=== PATIENT | female | born 1975 | race Caucasian/White ===

== ENCOUNTER 2017-08-15 10:38 | Emergency (ER) | END 2017-08-15 13:04 | disposition home or self-care (01) ==

== ENCOUNTER 2017-12-26 11:28 | Emergency (ER) | END 2017-12-26 12:54 | disposition home or self-care (01) ==

== ENCOUNTER 2018-04-10 23:34 | Emergency (ER) | END 2018-04-11 03:00 | disposition home or self-care (01) ==

== ENCOUNTER 2018-05-05 04:04 | Emergency (ER) | END 2018-05-05 07:02 | disposition home or self-care (01) ==

== ENCOUNTER 2018-09-26 04:03 | Emergency (ER) | payer OTHER ==
[~2018-09-26] VITALS: Ht 165.1 cm; Wt 67.0 kg
[~2018-09-26 04:03] MED LIST: AMOX1TAB10 PO; CYCL10TA7 PO; FERR27TA PO; HYDR-3980 PO; HYDR-4011 PO; IBUP-1542 PO; NAPR-985 PO; ONDA4TAB14 PO; ONDA4TAB8 PO; PREN1TAB49 PO
[2018-09-26 04:08] VITALS: Ht 165.1 cm; Wt 67.0 kg
[2018-09-26] MEDS ORDERED: ONDANSETRON 4 MG INJ IV STA (04:42)
[2018-09-26] MEDS ORDERED: morphine 4 MG/ML VIAL IV STA (04:42)
[2018-09-26] MEDS ORDERED: SOD CHLORIDE 0.9% 500 ML IV STA (04:42)
--- NOTE | 2018-09-26 06:22 | ERD ---
ER Documentation Chief Complaint Chief Complaint C/O WORSENING RT SIDED FLANK PAIN SINCE YESTERDAY HPI This is a 42-year-old woman complaining of right flank pain beginning last night, colicky, nonradiating and nonexertional. Patient states she has had multiple similar episodes in the past and her last ultrasound revealed gallston es and she states a CAT scan performed about a year ago was unrevealing. Patient denies fevers or chills, no weight loss, no hematuria, no complaints of chest pain or shortness of breath. ROS All systems reviewed and are negative except as per history of present illness. Medications Home Meds Active Scripts Oxycodone HCl/Acetaminophen (Percocet 5-325 mg Tablet) 1 Each Tablet, 1 EACH PO TID PRN for PAIN, #12 TAB Prov:KYLEE FRANCO MD 09/26/18 Ondansetron Hcl* (Zofran*) 4 Mg Tablet, 4 MG PO Q8H PRN for NAUSEA AND/OR VOMITING, #30 TAB Prov:KYLEE FRANCO MD 09/26/18 Ibuprofen* (Motrin*) 600 Mg Tab, 600 MG PO Q8 PRN for PAIN AND/OR INFLAMMATION, #30 TAB Prov:KYLEE FRANCO MD 09/26/18 Ondansetron Hcl* (Zofran*) 4 Mg Tablet, 4 MG PO Q8H PRN for NAUSEA AND/OR VOMITING, #30 TAB Prov:CHUYITA DEVI 05/05/18 Hydrocodone/Acetaminophen ([place] 10-325 Tablet) 1 Each Tablet, 1 TAB PO Q6H PRN for SEVERE PAIN LEVEL 7-10, #20 TAB Prov:CHUYITA DEVI 05/05/18 Naproxen* (Naprosyn*) 500 Mg Tablet, 500 MG PO BID PRN for PAIN AND/OR INFLAMMATION, #30 TAB Prov:CHUYITA DEVI 05/05/18 Hydrocodone/Acetaminophen ([place] 5-325 Tablet) 1 Each Tablet, 1 TAB PO Q6H PRN for PAIN, #7 TAB Prov:JEAN MARIE GILLIAM PA-C 04/11/18 Ondansetron (Ondansetron Odt) 4 Mg Tab.rapdis, 4 MG PO Q6H PRN for NAUSEA AND/OR VOMITING, #10 TAB Prov:JEAN MARIE GILLIAM PA-C 04/11/18 Ibuprofen* (Motrin*) 600 Mg Tab, 600 MG PO Q6, #30 TAB Prov:JEAN MARIE GILLIAM PA-C 04/11/18 Naproxen* (Naprosyn*) 500 Mg Tablet, 500 MG PO BID PRN for PAIN AND/OR INFLAMMATION, #30 TAB Prov:TUSHAR COLON PA-C 12/26/17 Amoxicillin/Potassium Clav (Amox-Clav 875-125 mg Tablet) 875-125 mg Tab, 1 TAB PO BID for 7 Days, #14 TAB Prov:TUSHAR COLON PA-C 12/26/17 Ibuprofen* (Motrin*) 600 Mg Tab, 600 MG PO Q6H PRN for PAIN AND OR ELEVATED TEMP, #30 TAB Prov:ANGELICA GONZALEZ PA-C 08/15/17 Cyclobenzaprine Hcl* (Cyclobenzaprine Hcl*) 10 Mg Tablet, 10 MG PO TID, #30 TAB Prov:ANGELICA GONZALEZ PA-C 08/15/17 Reported Medications Ferrous Sulfate (Iron) 1 Tab Tablet, 1 TAB PO BID for 1 Day 12/06/10 Vits W-Ca,Fe,Fa(<1MG) () 1 Tab Tablet, 1 TAB PO DAILY for 1 Day 12/06/10 Allergies Allergies: Coded Allergies: No Known Allergy (Verified Allergy, 12/06/10) PMhx/Soc History of cholelithiasis, anemia History of Surgery: No Anesthesia Reaction: No Hx Neurological Disorder: No Hx Respiratory Disorders: No Hx Cardiac Disorders: No Hx Psychiatric Problems: No Hx Miscellaneous Medical Probl: No Hx Alcohol Use: No Hx Substance Use: No Hx Tobacco Use: No FmHx Family History: No diabetes Physical Exam Vitals Vital Signs Date Temp Pulse Resp B/P (MAP) Pulse Ox O2 O2 Flow FiO2 Time Delivery Rate 09/26/18 96.7 62 17 113/65 100 Room Air 08:07 (81) 09/26/18 98.2 67 16 118/73 100 Room Air 07:05 (88) 09/26/18 73 16 123/80 100 Room Air 06:17 (94) 09/26/18 97.9 75 18 136/65 100 04:08 (88) Physical Exam GENERAL: Well-developed, well-nourished, well-hydrated, in no apparent distress, looks nontoxic in appearance HEENT: Moist mucous membranes, pink conjunctiva, no cervical spine tenderness or step-off deformities, no goiter, no jaundice or icterus, extraocular movements intact without pain. No submandibular induration, and no pharyngeal erythema NEURO: Alert and oriented 3, cranial nerves II through XII intact bilaterally, pupils equal round reactive to light, no focal deficits or facial asymmetry, sensation intact distally Strength 5/5 in upper and lower extremities bilaterally CARDIAC: Regular rate and rhythm, no murmurs rubs or gallops LUNGS: Clear bilaterally no wheezing crackles or stridor ABDOMEN: Soft nontender, no guarding, no rigidity, no rebound, no psoas sign no obturator sign. Normoactive bowel sounds SKIN: Warm and dry to touch, no abrasions, contusions, or hematomas, no lacerations, no ecchymosis, no target lesions, and without ulcers EXTREMITIES: No clubbing cyanosis or edema, calves are bilaterally symmetrical, no Homans sign, no popliteal cord sign. Distal pulses equal and bilateral PSYCH: Normal affect without agitation or irritability Result Diagram: 09/26/18 0500 09/26/18 0500 Results 24 hrs Laboratory Tests Test 09/26/18 05:00 White Blood Count 5.9 10^3/ul Red Blood Count 4.12 10^6/ul Hemoglobin 9.8 g/dl Hematocrit 32.0 % Mean Corpuscular Volume 77.7 fl Mean Corpuscular Hemoglobin 23.8 pg Mean Corpuscular Hemoglobin Concent 30.6 g/dl Red Cell Distribution Width 16.3 % Platelet Count 377 10^3/UL Mean Platelet Volume 9.5 fl Immature Granulocytes % 0.200 % Neutrophils % 45.5 % Lymphocytes % 43.7 % Monocytes % 7.6 % Eosinophils % 2.5 % Basophils % 0.5 % Nucleated Red Blood Cells % 0.0 /100WBC Immature Granulocytes # 0.010 10^3/ul Neutrophils # 2.7 10^3/ul Lymphocytes # 2.6 10^3/ul Monocytes # 0.5 10^3/ul Eosinophils # 0.2 10^3/ul Basophils # 0.0 10^3/ul Nucleated Red Blood Cells # 0.0 10^3/ul Urine Color YELLOW Urine Clarity CLEAR Urine pH 5.0 Urine Specific [place] 1.018 Urine Ketones NEGATIVE mg/dL Urine Nitrite NEGATIVE mg/dL Urine Bilirubin NEGATIVE mg/dL Urine Urobilinogen NEGATIVE mg/dL Urine Leukocyte Esterase NEGATIVE Sonali/ul Urine Microscopic RBC 2 /HPF Urine Microscopic WBC 1 /HPF Urine Hemoglobin 1+ mg/dL Urine Glucose NEGATIVE mg/dL Urine Total Protein NEGATIVE mg/dl Urine Test NEGATIVE Sodium Level 141 mmol/L Potassium Level 4.1 mmol/L Chloride Level 109 mmol/L Carbon Dioxide Level 24 mmol/L Anion Gap 8 Blood Urea Nitrogen 9 mg/dl Creatinine 0.54 mg/dl Est Glomerular Filtrat Rate mL/min > 60 mL/min Glucose Level 93 mg/dl Calcium Level 9.1 mg/dl Total Bilirubin 0.4 mg/dl Direct Bilirubin 0.00 mg/dl Indirect Bilirubin 0.4 mg/dl Aspartate Amino Transf (AST/SGOT) 27 IU/L Alanine Aminotransferase (ALT/SGPT) 21 IU/L Alkaline Phosphatase 64 IU/L Total Protein 7.7 g/dl Albumin 4.1 g/dl Globulin 3.60 g/dl Albumin/Globulin Ratio 1.13 Lipase 216 U/L Serum HCG, Qualitative NEGATIVE Current Medications Medications Dose Sig/Rayray Start Time Status Last (Trade) Ordered Route PRN Stop Time Admin Dose Reason Admin Sodium 500 ml @ Q1H STAT 09/26/18 DC 09/26/18 Chloride 500 mls/hr IV 04:42 05:12 09/26/18 05:41 Morphine 4 mg ONCE STAT 09/26/18 DC 09/26/18 Sulfate IV 04:42 05:13 (morphine) 09/26/18 04:44 Ondansetron 4 mg ONCE STAT 09/26/18 DC 09/26/18 HCl (Zofran IV 04:42 05:12 Inj) 09/26/18 04:44 Ketorolac 15 mg ONCE STAT 09/26/18 DC 09/26/18 Tromethamine IV 07:34 07:48 (Toradol) 09/26/18 07:35 Procedures/MDM IV line was established patient was placed on vehicle monitor technician rhythm strip revealed a sinus rhythm at about 80 bpm with upright P and T waves. Patient was afebrile I administered 1 L normal saline IV, morphine 4 mg IV, Zofran 4 mg IV later followed by Toradol 15 mg IV CBC and electrolytes were normal, liver function tests were normal, test negative, urine analysis negative for infection positive for microscopic hematuria. Chest X-ray 1V Interpreted by me: Soft Tissue: No acute abnormalities Bones: No acute abnormalities Mediastinum/Cardiac Silhouette/Lungs: No acute abnormalities CT scan of the abdomen and pelvis was performed,IMPRESSION: 1. Cholelithiasis. 2. No CT evidence for obstructive uropathy or renal calculi. 3. [id number] retained stool without obstruction. 4. Solitary cecal diverticula without evidence for inflammatory changes. 5. No CT evidence for appendicitis. 6. Intrauterine device. 7. Tampon within the vaginal vault. 8. L5-S1 spondylolisthesis (15%). Patient's pain completely resolved and she is able to tolerate p.o., vital signs remained normal. No indication for any further intervention, imaging, or admission. Patient will follow-up with PMD and I also gave her referral to 3 nearby surgeons Differential diagnoses considered, included but not limited to acute coronary syndrome, pulmonary embolism, aortic dissection, abdominal aortic aneurysm, sepsis, stroke, meningitis, encephalitis, pneumonia, appendicitis, cholecystitis, bowel obstruction, pyelonephritis, nephrolithiasis, cystitis, as well as metabolic, hematologic, and electrolyte abnormalities. As well as abscess, cellulitis, fractures, and dislocations. Patient feels much better at this time, and vital signs are normal, symptoms have improved. I did give strict instructions to return to the ED if symptoms continue or worsen, patient will otherwise follow-up with primary care physician. Patient understood instructions and agreed to plan. Disclaimer: Inadvertent spelling and grammatical errors are likely due to EHR/dictation software use and do not reflect on the overall quality of patient care. Also, please note that the electronic time recorded on this note does not necessarily reflect the actual time of the patient encounter. Departure Diagnosis: Primary Impression: Flank pain Additional Impression: Cholelithiasis Cholelithiasis location: gallbladder Cholecystitis presence: without cholecystitis Biliary obstruction: without biliary obstruction Qualified Codes: K80.20 - Calculus of gallbladder without cholecystitis without obstruction Condition: KYLEE Obregon MD September 26, 2018 06:22
[2018-09-26] MEDS ORDERED: KETOROLAC 15 MG INJ IV STA (07:34)
[2018-09-26] MEDS ORDERED: ONDA4TAB8 PO (07:36)
[2018-09-26] MEDS ORDERED: OXYC-279 PO (07:36)
[2018-09-26] MEDS ORDERED: IBUP-1542 PO (07:36)
[2018-09-26 08:07] VITALS: BP 113/65; PULSE 62; RESP 17
== END 2018-09-26 08:08 | disposition home or self-care (01) ==
LOC: E/R 04:03
DX: K80.20 Calculus of gallbladder without cholecystitis without obstruction (principal)
CPT/HCPCS: 36415; 71045; 74176; 80053; 81001; 83690; 84703; 85025; 87086; 96374; 96375; J1885; J2270; J2405; J7040; Z7502